=== PATIENT | female | born 1945 | race Two or more races ===

== ENCOUNTER 2018-07-12 15:02 | Emergency (ER) | payer MEDICARE, OTHER ==
[2018-07-12] MEDS: ACETAMINOPHEN 325 MG TAB PO (16:04)
[2018-07-12] MEDS: IBUPROFEN 200 MG TAB PO (16:04)
== END 2018-07-12 17:45 | disposition home or self-care (01) ==
LOC: FTE 15:02
DX: S06.0X0A Concussion without loss of consciousness, initial encounter (principal); E11.9 Type 2 diabetes mellitus without complications; I10 Essential (primary) hypertension; S00.03XA Contusion of scalp, initial encounter; S50.312A Abrasion of left elbow, initial encounter; V01.10XA Pedestrian on foot injured in collision with pedal cycle in traffic accident, initial encounter
CPT/HCPCS: 70450; 73080-LT; 99284-25